=== PATIENT | female | born 1985 | race Caucasian/White ===

== ENCOUNTER 2016-08-18 | Emergency (ER) | payer MEDICAID ==
[~2016-08-18] VITALS: Ht 167.6 cm; Wt 108.9 kg
[2016-08-18 00:09] VITALS: BP 158/92
[2016-08-18 00:43] LABS: Basophils # (auto) 0.2 uL; Eosinophils # (auto) 0.1 uL; Eosinophils % (auto) 1.8 % (0.0-7.0); Hematocrit 37.8 % (36.0-46.0); Hemoglobin 12.5 g/dL (12.2-16.2); Lymphocytes # (auto) 1.6 uL; Lymphocytes % (auto) 22.1 % (10.0-50.0); Mean Corpuscular Hemoglobin 27.7 pg (28.0-32.0); Mean Corpuscular Hgb Conc. 33.2 g/dL (32.0-36.0); Mean Corpuscular Volume 83.6 fL (80.0-100.0); Mean Platelet Volume 6.7 fL (7.4-10.4); Monocytes # (auto) 0.6 uL; Neutrophils # (auto) 4.6 uL; Neutrophils % (auto) 64.1 % (37.0-80.0); Platelet Count (auto) 294 10^3/uL (140-450); Red Cell Distribution Width 13.9 % (11.6-16.0); White Blood Cell 7.1 10^3/uL (4.4-10.8)
[2016-08-18 00:56] LABS: Urine Bilirubin Negative (Negative); Urine Blood Negative /uL (Negative); Urine Color Yellow (Yellow); Urine Glucose Normal (Normal); Urine Ketone Negative (Negative); Urine Nitrite Negative (Negative); Urine RBC 1 /hpf (0 - 4); Urine Squamous Epithelial Cell FEW /hpf (<5); Urine Urobilinogen Normal (Negative)
[2016-08-18 01:03] LABS: Albumin 3.4 g/dL (3.4-5.0); BUN/Creatinine Ratio 14.9; Calcium 8.8 mg/dL (8.5-10.1); Potassium 3.5 mmol/L (3.5-5.1)
[2016-08-18 01:06] LABS: Bilirubin, Total 0.2 mg/dL (0.2-1.0); Total Protein 6.9 g/dL (6.4-8.2)
== END 2016-08-18 05:14 | disposition left against medical advice (07) ==
LOC: ER
DX: R10.9 Unspecified abdominal pain (principal); Z53.21 Procedure and treatment not carried out due to patient leaving prior to being seen by health care provider
CPT/HCPCS: 36415; 80053; 81001; 81025; 84702; 85025

== ENCOUNTER 2020-01-16 10:19 | Inpatient (IN) | payer MEDICAID ==
[~2020-01-16] VITALS: Ht 167.6 cm; Wt 116.3 kg
[2020-01-16] MEDS ORDERED: SODIUM CHLORIDE 0.9% 1,000 ML IV ONE ×2 (10:30)
[2020-01-16 10:37] LABS: Basophils # (auto) 0.1 10 ^3/uL (0-0.2); Basophils % (auto) 0.7 % (0.0-2.0); Hemoglobin 12.8 g/dL (12.2-16.2); Lymphocytes # (auto) 1.1 10 ^3/uL (0.4-5.4); Mean Corpuscular Volume 80.9 fL (80.0-100.0); Monocytes # (auto) 0.5 10 ^3/uL (0-1.3); Red Cell Distribution Width 15.2 % (11.8-14.3); White Blood Cell 9.3 10^3/uL (4.4-10.8)
[2020-01-16 10:39] LABS: Eosinophils # (auto) 0.2 10 ^3/uL (0-0.8); Eosinophils % (auto) 1.7 % (0.0-7.0); Hematocrit 39.4 % (36.0-46.0); Mean Corpuscular Hemoglobin 26.3 pg (28.0-32.0); Mean Corpuscular Hgb Conc. 32.5 g/dL (32.0-36.0); Monocytes % (auto) 5.7 % (0.0-12.0); Neutrophils # (auto) 7.4 10 ^3/uL (1.6-8.6); Neutrophils % (auto) 79.9 % (37.0-80.0); Nucleated Red Blood Cells % 0.1 %; Platelet Count (auto) 306 10^3/uL (140-450); Red Blood Cells 4.87 10^6/uL (4.0-5.20)
[2020-01-16 11:05] LABS: Albumin 3.7 g/dL (3.4-5.0); Anion Gap 4 (5-15); Blood Urea Nitrogen 14 mg/dL (7-18); Calcium 8.7 mg/dL (8.5-10.1); Carbon Dioxide 26 mmol/L (21-32); Chloride 107 mmol/L (98-107); Glucose 90 mg/dL (74-106); Lipase 118 U/L (73-393); Potassium 3.8 mmol/L (3.5-5.1); Sodium 137 mmol/L (136-145)
[2020-01-16 11:11] LABS: Alanine Aminotransferase 22 U/L (13-56); Alkaline Phosphatase 93 U/L (45-117); Aspartate Aminotransferase 18 U/L (15-37); BUN/Creatinine Ratio 19.4; Bilirubin, Total 0.4 mg/dL (0.2-1.0); GFR African American 118 mL/min; GFR Non-African American 97 mL/min; Total Protein 7.6 g/dL (6.4-8.2)
[2020-01-16 11:20] LABS: Urine Bacteria FEW /hpf (None Seen); Urine Blood Negative /uL (Negative); Urine Mucus FEW (None Seen); Urine Specific Gravity 1.014 (1.001-1.035); Urine WBC 1 /hpf (0 - 5)
[2020-01-16] MEDS ORDERED: PIPERACILLIN-TAZOB 3.375GM 100 ML IV ONE (12:30)
[2020-01-16] MEDS ORDERED: MORPHINE SULFATE 4 MG/ML SYR/VIAL IV ONE (12:30)
[2020-01-16] MEDS ORDERED: KETOROLAC TROMETH 30 MG/ML 1ML VIAL IV ONE (12:30)
[2020-01-16] MEDS ORDERED: ONDANSETRON HCL 4 MG/2 ML VIAL IV ONE (12:30)
[2020-01-16] MEDS ORDERED: NITROGLYCERIN 0.4 MG SL TAB SL PRN (15:00)
[2020-01-16] MEDS ORDERED: MORPHINE SULF INJ 2 MG/ML SYRINGE 1ML IV PRN (15:00)
[2020-01-16] MEDS: cefTRIAXone 1GM/50ML D5W 50 ML IV SCH (15:30)
[2020-01-16] MEDS ORDERED: MORPHINE SULFATE 4 MG/ML SYR/VIAL IV PRN (15:30)
[2020-01-16] MEDS ORDERED: hydrALAZINE HCL 20 MG/ML VL IV PRN (15:45)
--- NOTE | 2020-01-16 16:24 | NUR ---
Telemetry admit from ER RONDA BARBOZA admitted to Telemetry unit after SBAR received. Patient oriented to SOHA BOYKIN, RN primary RN, unit, room, bed, and unit policies regarding patient care and visiting hours. Patient now on continuous telemetry monitoring, tele box # 71 and telemetry reading on arrival to unit is Sinus Rhythm. Patient weighed by bedscale and encouraged to call if they need something. All questions and concerns addressed, patient verbalized understanding.
[2020-01-16 16:39] VITALS: BP 160/99
[2020-01-16 18:08] LABS: INR 0.96 (0.9-1.15)
[2020-01-16] MEDS: SODIUM CHLORIDE 0.9% 1,000 ML IV SCH (18:40)
--- NOTE | 2020-01-16 19:21 | NUR ---
ENDORSED CARE TO NOC SHIFT RN
--- NOTE | 2020-01-16 19:30 | NUR ---
Opening Shift Note Received report from Isaias REIS. Assumed care of patient, awake and alert. No S/S of distress/SOB or pain. Instructed on POC and to call for assist PRN, will continue to monitor for changes Q1hr and PRN.
--- NOTE | 2020-01-16 19:40 | NUR ---
Dr. Chasity De Los Santos in to see patient for surgical consult. MD ordered Cardiology consult, clear liquid diet then NPO after midnight. Orders carried out and followed through.
--- NOTE | 2020-01-16 19:46 | NUR ---
Dr. Fong made aware of Dr. De Los Santos's order for Cardiology consult, to see if he has a preferred doctor. Awaiting for call back.
--- NOTE | 2020-01-16 20:34 | NUR ---
Dr. Fong requested Dr. Shine to see the patient for Cardiology consult, order placed.
[2020-01-16 23:44] VITALS: BP 149/89
--- NOTE | 2020-01-17 03:19 | NUR ---
Patient's mother Leslee called to ask for update. Update given, Leslee verbalized understanding.
[2020-01-17] MEDS: SODIUM CHLORIDE 0.9% 1,000 ML IV SCH ×3 (03:50→21:53)
[2020-01-17 05:31] VITALS: BP 123/75
[2020-01-17 05:31] LABS: Basophils # (auto) 0 10 ^3/uL (0-0.2); Basophils % (auto) 0.7 % (0.0-2.0); Eosinophils # (auto) 0.2 10 ^3/uL (0-0.8); Eosinophils % (auto) 2.3 % (0.0-7.0); Hematocrit 35.9 % (36.0-46.0); Hemoglobin 11.7 g/dL (12.2-16.2); Lymphocytes # (auto) 1.2 10 ^3/uL (0.4-5.4); Lymphocytes % (auto) 18.3 % (10.0-50.0); Mean Corpuscular Hemoglobin 26.5 pg (28.0-32.0); Mean Corpuscular Hgb Conc. 32.7 g/dL (32.0-36.0); Mean Corpuscular Volume 81.1 fL (80.0-100.0); Monocytes # (auto) 0.5 10 ^3/uL (0-1.3); Monocytes % (auto) 6.8 % (0.0-12.0); Neutrophils # (auto) 4.9 10 ^3/uL (1.6-8.6); Neutrophils % (auto) 71.9 % (37.0-80.0); Nucleated Red Blood Cells % 0.1 %; Platelet Count (auto) 279 10^3/uL (140-450); Red Blood Cells 4.42 10^6/uL (4.0-5.20); Red Cell Distribution Width 15.1 % (11.8-14.3); White Blood Cell 6.8 10^3/uL (4.4-10.8)
[2020-01-17 05:49] LABS: Albumin 3.1 g/dL (3.4-5.0); Calcium 8.4 mg/dL (8.5-10.1); Potassium 3.8 mmol/L (3.5-5.1)
[2020-01-17 05:53] LABS: BUN/Creatinine Ratio 16.1; Bilirubin, Total 0.5 mg/dL (0.2-1.0); Total Protein 6.4 g/dL (6.4-8.2)
--- NOTE | 2020-01-17 07:30 | NUR ---
Opening Shift Note Assumed patient care from NOC RN. Patient currently laying on left side with eyes closed. Respirations even and unlabored. No signs of distress at this time. Will continue to monitor q1hr and PRN.
[2020-01-17 09:00] VITALS: BP 126/68
[2020-01-17] MEDS: cefTRIAXone 1GM/50ML D5W 50 ML IV SCH (09:55)
--- NOTE | 2020-01-17 10:41 | NUR ---
at Station Dr. Matthews at station discussing patient plan of care. New orders received for Echo.
--- NOTE | 2020-01-17 11:19 | NUR ---
Paged Pageakira De Los Santos.
--- NOTE | 2020-01-17 11:27 | NUR ---
Echo at Bedside.
--- NOTE | 2020-01-17 11:45 | NUR ---
at Station Dr. Tadeo at station discussing patient's plan of care.
--- NOTE | 2020-01-17 11:57 | NUR ---
Nutrition Assessment/Consult Notes Please refer to link for full assessment notes. Est Energy needs: [id number] kcals (12-15 kcal/kgBW) Est Protein needs: 118-148 gms/day (2.0-2.5 gm/kgIBW 59kg) Will continue to monitor and reassess prn. Addendum: 01/17/20 at [address] Amended: Links added.
[2020-01-17] MEDS ORDERED: ACETAMINOPHEN 325 MG TAB PO PRN (12:15)
[2020-01-17 13:00] VITALS: BP 120/73
--- NOTE | 2020-01-17 13:33 | NUR ---
MD Called Received return call from Dr. De Los Santos. New orders received for clear liquid diet. Per MD, will come to speak with patient regarding surgery.
--- NOTE | 2020-01-17 14:55 | NUR ---
Covid Swab Obtained covid swab. Patient tolerated well. Specimen signed in to lab.
--- NOTE | 2020-01-17 15:30 | NUR ---
Urine Sent Sent per Dr. Rockwell order.
[2020-01-17 17:00] VITALS: BP 123/72
--- NOTE | 2020-01-17 18:56 | NUR ---
Called MD Spoke with Dr. Chasity De Los Santos. Per MD will see patient tomorrow and is willing to see patient as outpatient, will answer questions tomorrow.
[2020-01-17 20:00] VITALS: BP 115/74
[2020-01-18 01:10] VITALS: BP 115/74
[2020-01-18 06:18] VITALS: BP 131/80
[2020-01-18] MEDS: SODIUM CHLORIDE 0.9% 1,000 ML IV SCH (06:22)
[2020-01-18] MEDS: cefTRIAXone 1GM/50ML D5W 50 ML IV SCH (08:53)
[2020-01-18 09:00] VITALS: BP 143/88
--- NOTE | 2020-01-18 11:42 | NUR ---
Michelle ROUNDING: SPOKE WITH Michelle ANDREWS PER Michelle ANDREWS PATIENT IS CLEARED CARDIAC STANDPOINT.
[2020-01-18 13:00] VITALS: BP 132/86
[2020-01-18] MEDS ORDERED: AML5T PO (13:31)
--- NOTE | 2020-01-18 13:38 | NUR ---
PER N.P. JESSICA ENTER ORDER FOR NORVASC 5MG PO DAILY.
--- NOTE | 2020-01-18 14:34 | NUR ---
CALLED IN PRESCRIPTION TO [facility] .
--- NOTE | 2020-01-18 15:44 | NUR ---
Discharge instructions given as ordered. Encourage to follow up with PMD as instructed. Instructed to follow up with PCP and Surgeon with provided address and phone number. Instructed on new medications and pertinent teaching on medication provided. All questions and concerns addressed. Patient verbalized understanding. Medication reconciliation form completed and copy given to patient. IV removed with catheter intact Telemetry unit returned to ICU. Patient taken to vehicle via wheelchair with all personal belongings, accompanied by staff and family member. No distress noted at time of departure. RECALLED PRESCRIPTIONS UNDER Ondina LOPEZ
== END 2020-01-18 15:36 | disposition home or self-care (01) ==
LOC: ER 10:19 → EDBD 10:19 → TELE 10:20 → TELE-WESTW 16:34
PROVIDERS: ADMIT Nurse Practitioner; ATTEND Nurse Practitioner
DX: K80.00 Calculus of gallbladder with acute cholecystitis without obstruction (principal); R55 Syncope and collapse; I10 Essential (primary) hypertension; F41.9 Anxiety disorder, unspecified; E66.9 Obesity, unspecified; Z68.41 Body mass index [BMI] 40.0-44.9, adult; Z83.3 Family history of diabetes mellitus; Z87.891 Personal history of nicotine dependence; Z20.828 Contact with and (suspected) exposure to other viral communicable diseases; R16.0 Hepatomegaly, not elsewhere classified
CPT/HCPCS: 36415; 70450; 74176; 76705; 80053; 81001; 83605; 83690; 84484; 84702; 85025; 85610; 87040; 93306; 96361; 96365; 96375; G0378; J0696; J1885; J2405; J2543

== ENCOUNTER 2024-10-04 08:23 | Emergency (ER) | payer MEDICAID ==
[~2024-10-04] VITALS: Ht 167.6 cm; Wt 107.5 kg
[~2024-10-04 08:23] MED LIST: AML5T PO
[2024-10-04] MEDS ORDERED: CEPH500C PO (08:39)
--- NOTE | 2024-10-04 08:39 | ED.PDOC ---
Musculoskeletal HPI Comments A 39 YEAR OLD FEMALE PRESENTS TO THE ED WITH COMPLAINT OF LEFT FOOT PAIN. PATIENT STATES SHE ACCIDENTALLY STEPPED ON SOMETHING WITH HER LEFT FOOT 3 DAYS AGO AND IS NOW EXPERIENCING LEFT FOOT PAIN AND NOTES THERE IS A SMALL BUMP WITH REDNESS ON THE AREA. PATIENT DENIES FEVER, CHILLS, SHORTNESS OF BREATH, CHEST PAIN, ABDOMINAL PAIN, NAUSEA, VOMITING, HEADACHE, OR OTHER COMPLAINTS. NO OTHER SYMPTOMS OR MODIFYING FACTORS AT THIS TIME. PATIENT IS ALERT, ORIENTED X 4, AND HAS STEADY GAIT. Chief Complaint: Lower Extremity Time Seen by MD: 08:25 Primary Care Provider: RENETTA Reviewed Notes: Nurses Notes, Medications, Allergies Allergies: Coded Allergies: NO KNOWN ALLERGIES (Unverified , 01/16/20) Home Meds Active Scripts Cephalexin Monohydrate (Cephalexin) 500 Mg Cap, 1 CAP PO QID, #28 CAP Prov:STEF ARGUELLES 10/04/24 Reported Medications Amlodipine Besylate (NORVASC TABLET) 5 Mg Tb, 1 TAB PO DAILY, #90 TAB 3 Refills 01/18/20 Information Source: Patient Mode of Arrival: Ambulatory Location: Left Extremity Location: Foot Timing: Days Prehospital treatment: None Severity: Moderate Able to Move Extremity: Yes Bear Weight: Fully Pain: Moderate Mechanism: Other (STEPPED ON OBJECT) Circumstances: Accident, Other (STEPPED ON OBJECT) Onset of Symptoms: Spontaneous Symptoms: Pain, Erythema DVT Risk Factors: NONE Last Tetanus: UTD Associated signs and symptoms: Foot pain Past Medical History PAST MEDICAL HISTORY: HTN Surgical History: Denies all surgeries SURGICAL TERRITORY MANAGER History: No Pertinent SURGICAL TERRITORY MANAGER History Family History Family History: Reviewed,noncontributory to illness Social History Smoker: Non-Smoker Alcohol: Denies ETOH Use Drugs: Denies Drug Use Lives In: Home Constitutional: denies: chills, diaphoresis, fatigue, fever, malaise, sweats, weakness, others EENTM: denies: blurred vision, double vision, ear bleeding, ear discharge, ear drainage, ear pain, ear ringing, eye pain, eye redness, hearing loss, mouth pain, mouth swelling, nasal discharge, nose bleeding, nose congestion, nose pain, photophobia, tearing, throat pain, throat swelling, voice changes, others Respiratory: denies: cough, hemoptysis, orthopnea, SOB at rest, shortness of breath, SOB with excertion, stridor, wheezing, others Cardiovascular: denies: chest pain, dizzy spells, diaphoresis, Dyspnea on exertion, edema, irregular heart beat, left arm pain, lightheadedness, palpitations, PND, syncope, others Gastrointestinal: denies: abdomen distended, abdominal pain, blood streaked bowels, constipated, diarrhea, dysphagia, difficulty swallowing, hematemesis, melena, nausea, poor appetite, poor fluid intake, rectal bleeding, rectal pain, vomiting, others Genitourinary: denies: abnormal vagina bleeding, burning, dyspareunia, dysuria, flank pain, frequency, hematuria, incontinence, pain, , vagina discha rge, urgency, others Neurological: denies: dizziness, fainting, headache, left sided numbness, left sided weakness, numbness, paresthesia, pre-existing deficit, right sided numbness, right sided weakness, seizure, speech problems, tingling, tremors, weakness, others Musculoskeletal: reports: others (LEFT FOOT PAIN); denies: back pain, gout, joint pain, joint swelling, muscle pain, muscle stiffness, neck pain Integumetry: reports: wounds (LEFT PLANTAR FOOT. ), others (BLISTER OF LEFT FOOT); denies: bruises, change in color, change in hair/nails, dryness, laceration, lesions, lumps, rash Allergic/Immunocompromised: denies: Difficulty Healing, Frequent Infections, Hives, Itching, others Hematologic/Lymphatic: denies: anemia, blood clots, easy bleeding, easy bruising, swollen glands, others Endocrine: denies: excessive hunger, excessive sweating, excessive thirst, excessive urination, flushing, intolerance to cold, intolerance to heat, unexplained weight gain, unexplained weight loss, others Psychiatric: denies: anxiety, bipolar disorder, depression, hopeless, panic disorder, schizophrenia, sleepless, suicidal, others All Other Systems: Reviewed and Negative Physical Exam General Appearance: No Apparent Distress, Obese HEENT: Normal ENT Inspection, PERRL/EOMI, Pharynx Normal, TMs Normal Neck: Full Range of Motion, Non-Tender, Normal, Normal Inspection Respiratory: Chest Non-Tender, Lungs Clear, No Accessory Muscle Use, No Respiratory Distress, Normal Breath Sounds Cardiovascular: No Edema, No JVD, No Murmur, No Gallop, Normal Peripheral Pulses, Regular Rate/Rhythm Breast Exam: Deferred Gastrointestinal: No Organomegaly, Non Tender, No Pulsatile Mass, Normal Bowel Sounds, Soft Genitalia: Deferred Pelvic: Deferred Rectal: Deferred Extremities: No calf tenderness, Normal capillary refill, Normal range of motion, No pedal edema, Tender (WITH PUNCTURE AND BLISTER WOUND ON LEFT PLANTAR FOOT. ) Musculoskeletal : Apperance: Normal Neurologic: Alert, glaze carrier II-XII nml as Tested, No Motor Deficits, Normal Affect, Normal Mood, No Sensory Deficits Cerebellar Function: Normal Reflexes: Normal Skin: Dry, Normal Color, Warm, Wounds (A SMALL PUNCTURE WOUND AND BLISTER ON LEFT PLANTAR FOOT. NO PUS DRAINAGE, MILD CLEAR FLUID SEEN. NO FB. ) Peripheral Pulses: 2+ carotid (R), 2+ carotid (L), 2+ dorsalis pedis (R), 2+ dorsalis pedis (L) Lymphatic: No Adenopathy Was a procedure done? Was a procedure done?: No Differential Diagnosis EXT Differential Diagnosis: Sprain, Strain Other Differential Diagnosis BLISTER ON LEFT FOOT, SOFT TISSUE INFECTION X-Ray, Labs, Meds, VS Vital Signs Date Time Temp Pulse Resp B/P (MAP) Pulse Ox O2 Delivery O2 Flow Rate FiO2 10/04/24 08:24 98.3 110 20 150/72 97 98.3 X-Ray, Labs, Meds, VS Comment EXTERNAL MEDICAL RECORDS REVIEWED: [NONE] INDEPENDENT HISTORIANS: [NONE] SOCIAL DETERMINANTS OF HEALTH: [NONE] LABS ORDERED: NONE REVIEWED AND INTERPRETED RESULTS: NONE IMAGING ORDERED: NONE TREATMENTS ORDERED: AN 18 GAUGE NEEDLE WAS USED TO POKE A HOLE INTO THE NOE JARAMILLO'S BLISTER ON THE BOTTOM OF HER LEFT FOOT. PUS AND BLOOD WAS DRAINED. PATIENT'S WOUND WAS THEN CLEANED USING NORMAL SALINE. PATIENT TOLERATED WELL. PROCEDURES PERFORMED: NONE CRITICAL CARE TIME: NONE I HAVE DISCUSSED THE PATIENT WITH THE ATTENDING PHYSICIAN DR. DAVIDSON AND HE AGREES WITH THE PATIENT'S PLAN OF CARE AND DISPOSITION. BASED ON HISTORY OF PRESENT ILLNESS, AND PHYSICAL EXAM, PATIENT WILL BE DISCHARGED HOME. DISCUSSED PLAN FOR DISCHARGE HOME WITH RX [KEFLEX]. MEDICATION WARNINGS GIVEN. SHARED DECISION MAKING: PATIENT INSTRUCTED TO FOLLOW UP WITH PRIMARY CARE PROVIDER IN 1-2 DAYS FOR RE-EVALUATION OF SYMPTOMS. PATIENT VERBALIZES UNDERSTANDING TO RETURN TO ED FOR NEW OR WORSENING SYMPTOMS OR IF FOLLOW UP WITH PCP CANNOT BE OBTAINED. PATIENT FEELS COMFORTABLE GOING HOME AT THIS TIME. ALL QUESTIONS ADDRESSED AT TIME OF DISCHARGE. Time of 1ST Reevaluation: 08:45 Reevaluation 1ST: Improved Patient Education/Counseling: Diagnosis, Treatment, Need For Follow Up Family Education/Counseling: Diagnosis, Treatment, Need For Follow Up Medical Screening: No EMC Exist At This Time Departure 1 Departure Time of Disposition: 08:45 Impression: Primary Impression: Blister (nonthermal), left foot, initial encounter Disposition: HOME / SELF CARE / HOMELESS Condition: Stable Additional Instructions: FOLLOW-UP WITH PCP IN 1 TO 2 DAYS. TAKE MEDICATIONS PRESCRIBED. RETURN TO ED FOR ANY NEW OR WORSENING SYMPTOMS. e-Prescriptions Cephalexin Monohydrate (Cephalexin) 500 Mg Cap 1 CAP PO QID, #28 CAP Prov: STEF ARGUELLES 10/04/24 Discharged With: Self Critical Care Note Critical Care Time?: No Stability Stability form required: No I personally scribed for STEF ARGUELLES ([email or web address]) on 10/04/24 at 08:39. Electronically submitted by Xavi Browning ([email or web address]). STEF ARGUELLES Oct 04, 2024 08:39
[2024-10-04 08:42] VITALS: BP 150/72; PULSE 107; RESP 20; TEMP 98.3; O2SAT 97
== END 2024-10-04 08:47 | disposition home or self-care (01) ==
LOC: ER 08:23
DX: S90.822A Blister (nonthermal), left foot, initial encounter (principal); I10 Essential (primary) hypertension; Z79.899 Other long term (current) drug therapy; W22.8XXA Striking against or struck by other objects, initial encounter; Y93.89 Activity, other specified; Y92.89 Other specified places as the place of occurrence of the external cause; Y99.8 Other external cause status